=== PATIENT | female | born 1930 | race Caucasian/White ===

== ENCOUNTER 2017-09-08 17:53 | Inpatient (IN) | payer OTHER ==
[2017-09-08] MEDS ORDERED: NS 1,000 ML IV ONE (18:06)
[2017-09-08] MEDS ORDERED: HYDROmorphONE/DILAUDID 2 MG/ML INJ IVP ONE (18:06)
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
[2017-09-08 18:22] LABS: PLATELET COUNT 249 10^3/uL (150-400)
[2017-09-08 18:33] LABS: INR 0.92 (0.83-1.16); PROTIME(PATIENT) 12.6 SEC (12.0-15.0)
[2017-09-08] MEDS ORDERED: ONDANSETRON DISINTEGRATING 4 MG TAB PO PRN (19:00)
[2017-09-08] MEDS ORDERED: LR 1,000 ML IV SCH (19:00)
[2017-09-08] MEDS ORDERED: LR 1,000 ML IV ONE (19:52)
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
[2017-09-08] MEDS ORDERED: BUPIVACAINE/EPI 0.5% 30 ML SDV ONE (20:27)
--- NOTE | 2017-09-08 20:39 | PDANEPAE ---
ANE Past Medical History - Cardiovascular History Hx Hypertension: Yes Hx Arrhythmias: Yes Hx Chest Pain: No Hx Coronary Artery / Peripheral Vascular Disease: No Hx CHF / Valvular Disease: No Hx Palpitations: No - Pulmonary History Hx COPD: No Hx Asthma/Reactive Airway Disease: No Hx Recent Upper Respiratory Infection: No Hx Oxygen in Use at Home: Yes Hx Sleep Apnea: Yes Pulmonary History Comment: Uses oxygen at night - Neurologic History Hx Cerebrovascular Accident: No Hx Seizures: No Hx Dementia: Yes Neurologic History Comment: Mild cognitive impairment - Endocrine History Hx Diabetes: No - Renal History Hx Renal Disorders: No - Liver History Hx Hepatic Disorders: No - Neurological & Psychiatric Hx Hx Neurological and Psychiatric Disorders: Yes Neurological / Psychiatric History Comment: Depression - Cancer History Hx Cancer: Yes Cancer History Comment: Skin cancer - Congenital Disorder History Hx Congenital Disorders: No - GI History Hx Gastrointestinal Disorders: Yes Gastrointestinal History Comment: IBS - Chronic Pain History Chronic Pain: No - Surgical History Prior Surgeries: Hysterectomy, L. knee, breast cyst removal, retinal detachment ANE Review of Systems Review of Systems: - Exercise capacity METS (RN): 3 METS ANE Patient History - Allergies Allergies/Adverse Reactions: Penicillins Allergy (Verified 09/08/17 18:20) - Home Medications Home Medications: Aspirin EC [Aspirin EC 81 mg (*)] 81 mg PO DAILY 09/08/17 [Last Taken 09/07/17] Atenolol [Tenormin 25 mg (*)] 25 mg PO DAILY 09/08/17 [Last Taken 09/07/17] Levothyroxine [Synthroid 88 mcg (*)] 88 mcg PO DAILY06 09/08/17 [Last Taken 07/22] Losartan Potassium [Cozaar 50 mg (*)] 50 mg PO DAILY 09/08/17 [Last Taken ] Sertraline HCl [Zoloft 100mg (*)] 100 mg PO DAILY 09/08/17 [Last Taken 09/07/17] - NPO status NPO Status: no food or drink >8 hours NPO Since - Liquids (Date): 09/08/17 NPO Since - Liquids (Time): 12:00 NPO Since - Solids (Date): 09/08/17 NPO Since - Solids (Time): 12:00 - Anes Hx Anes Hx: no prior problems - Smoking Hx Smoking Status: Never smoked - Alcohol Use Alcohol Use: Sober - Family Anes Hx Family Hx Anesthesia Complications: NA ANE Labs/Vital Signs - Labs Result Diagrams: 09/08/17 17:55 09/08/17 17:55 - Vital Signs Blood Pressure: 227/124 Heart Rate: 96 Respiratory Rate: 16 O2 Sat (%): 92 Height: 157.48 cm Weight: 53.977 kg ANE Physical Exam - Airway Neck exam: FROM Mallampati Score: Class 2 Mouth exam: normal dental/mouth exam - Pulmonary Pulmonary: no respiratory distress, no rales or rhonchi, clear to auscultation - Cardiovascular Cardiovascular: regular rate and rhythym, no murmur, rub, or gallop - ASA Status ASA Status: III ANE Anesthesia Plan Anesthesia Plan: GA w LMA
--- NOTE | 2017-09-08 20:39 | POSTOPPROG ---
Post Op Note Date of Operation: 09/08/17 Surgeon: Semaj Street Anesthesia: GET(General Endotracheal) Pre-op Diagnosis: L Femoral neck fx Post-op Diagnosis: same Procedure: closed reduction, percutaneous screw fixation L femoral neck fx Inf/Abcess present in the surg proc area at time of surgery?: No
[2017-09-08] MEDS ORDERED: fentaNYL 100 MCG/2 ML INJ ONE (20:53)
[2017-09-08] MEDS ORDERED: PROPOFOL 200 MG/20 ML VIAL ONE (20:53)
[2017-09-08] MEDS ORDERED: LIDOCAINE 2% JELLY 5 ML TUBE ONE (20:53)
[2017-09-08] MEDS ORDERED: CLINDAMYCIN 600 MG/DEXTROSE 50 ML IV ONE (20:54)
[2017-09-08] MEDS ORDERED: LR 500 ML IV PRN (20:58)
[2017-09-08] MEDS ORDERED: fentaNYL 100 MCG/2 ML INJ IVP PRN (20:58)
[2017-09-08] MEDS ORDERED: PROMETHAZINE HCL 25 MG/ML INJ IVP PRN (20:58)
[2017-09-08] MEDS ORDERED: DEXAMETHASONE 4 MG/ML VIAL IVP PRN (20:58)
[2017-09-08] MEDS ORDERED: NALOXONE HCL 0.4 MG/ML INJ IVP PRN (20:58)
[2017-09-08] MEDS ORDERED: HYDROCODONE/APAP 5/325 TAB PO PRN (20:58)
[2017-09-08] MEDS ORDERED: ENALAPRILAT DIHYDRATE 1.25 MG/ML VIAL IVP PRN (20:58)
[2017-09-08] MEDS ORDERED: ONDANSETRON 4 MG/2 ML VIAL IVP PRN (20:58)
[2017-09-08] MEDS ORDERED: LABETALOL HCL 5 MG/ML 20 ML MDV ONE (21:21)
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
[2017-09-08] MEDS: LABETALOL HCL 5 MG/ML 20 ML MDV IVP PRN ×2 (22:39→23:12)
[2017-09-08] MEDS ORDERED: ENALAPRILAT DIHYDRATE 1.25 MG/ML VIAL ONE (22:52)
--- NOTE | 2017-09-08 22:57 | GOP ---
[f rep st] OPERATIVE REPORT DATE OF OPERATION: 09/08/2017 SURGEON: Semaj Street MD ANESTHESIA: General. PREOPERATIVE DIAGNOSIS: Left cervical femoral neck fracture. POSTOPERATIVE DIAGNOSIS: Left basilar femoral neck fracture. PROCEDURE PERFORMED: Open reduction and internal fixation, left basilar femoral neck fracture, with trochanteric fixation nail. FINDINGS: ESTIMATED BLOOD LOSS: Minimal. INDICATIONS: The patient is an 86-year-old community ambulator who sustained a fall, resulting in a nondisplaced left basilar femoral neck fracture. Based on the nature of her fracture and concern ove r displacement, it was recommended that operative stabilization be pursued. The patient acknowledged she understood the potential risks of the operation, including but not limited to bleeding, infectio n, neurovascular damage, limb loss, limited limb function, malunion, nonunion, pain or functional pereira itations despite operative treatment, need for hardware removal, and anesthetic risks. She acknowled ged she understood the potential risks, planned procedure and postoperative plan well, and had all he r questions answered prior to surgery. She gave consent for the operative procedure. DESCRIPTION OF PROCEDURE: The patient was brought into the operating after IV antibiotics were admin istered. She was placed in a supine position, initially on her stretcher, and after general anesthet ic was administered, she was transferred to the radiolucent fracture table with her left leg placed i n a well-padded traction boot and the right leg placed in a well-padded well-leg zavala. Fluoroscopi c views were obtained which showed that the fracture was a very basilar neck fracture rather than wha t had been initially appreciated on preoperative films being more of a basicervical type fracture. B ased on this, it was felt that a trochanteric fixation nail, rather than percutaneous screw fixation as had been originally planned and discussed with the patient, be pursued. The left hip was prepped and draped in standard sterile fashion. A small incision was made proximal to the tip of the greater trochanter. A guidepin was placed on the tip of the trochanter and advanced down the intramedullary canal of the femur. Guidepin placement was confirmed fluoroscopically in AP and lateral views, and found to be optimal. The starting reamer was then used to create a trough for nail placement. A 10 mm diameter, 170 mm long, 130-degree angle trochanteric fixation nail was passed down the intramedull lidia canal. The nail was placed in the positions so that the guidepin was at the appropriate level fo r the spiral blade placement. A guidepin, through the aiming guide, was advanced from the lateral as pect of the femur after making a small incision, into the central aspect of the femoral head on AP an d lateral images. Fluoroscopic views confirmed optimal placement. An appropriate length spiral blad e was impacted into place after pre-drilling with the step drill. The blade was then tightened into place with a proximal locking screw. A distal locking bolt was then placed using the aiming guide. Fluoroscopic views confirmed favorable implant and fracture positions. Attention was directed toward s closure. Subcutaneous tissue was closed with 3-0 Vicryl suture in interrupted fashion. The skin w as closed with skin sadiq. 0.5% Marcaine with epinephrine was injected in the wound sites. The wo unds were dressed with sterile Adaptic, 4 x 4, and tape. The patient was taken to the recovery room, extubated in stable condition postoperatively. All sponge, needle, and instrument counts were repor sandra as being correct. DRAINS: None. COMPLICATIONS: None. PLAN: The patient will be admitted for medical management. She will be weightbearing as tolerated o n her operative extremity. /[id number]/MODL
[2017-09-09] MEDS ORDERED: HYDROCODONE/APAP 5/325 TAB PO PRN (01:01)
--- NOTE | 2017-09-09 05:49 | SOAPPROG ---
SOAP Progress Note Assessment/Plan: Assessment: S/P TFN L hip Pain tolerable Liseth po L Thigh dressing intact, mild sang D/C Leg length/rotation equal Distal NVI Plan: OOB/PT May be FULL WBAT Home vs SNF pending progress 09/09/17 05:46 Objective: Vital Signs Temp Pulse Resp BP Pulse Ox 36.9 C 69 18 151/65 H 97 09/09/17 03:34 09/09/17 03:34 09/09/17 03:34 09/09/17 03:34 09/09/17 03:34 09/07/17 09/08/17 09/09/17 05:59 05:59 05:59 Intake Total 600 Output Total 590 Balance 10 PT 12.6 SEC (12.0-15.0) 09/08/17 17:55 INR 0.92 (0.83-1.16) 09/08/17 17:55 ICD10 Worksheet Patient Problems: Problems Problem Status Onset Closed left hip fracture Acute Pubic ramus fracture Acute
--- NOTE | 2017-09-09 05:51 | PDIAF ---
- Diagnosis Code Status: Full Code - Medication Management Discharge Medications: Medications to Continue on Transfer Aspirin EC [Aspirin EC 81 mg (*)] 81 mg PO DAILY 09/08/17 [Last Taken 09/07/17] Atenolol [Tenormin 25 mg (*)] 25 mg PO DAILY 09/08/17 [Last Taken 09/07/17] Levothyroxine [Synthroid 88 mcg (*)] 88 mcg PO DAILY06 09/08/17 [Last Taken 07/22] Losartan Potassium [Cozaar 50 mg (*)] 50 mg PO DAILY 09/08/17 [Last Taken ] Sertraline HCl [Zoloft 100mg (*)] 100 mg PO DAILY 09/08/17 [Last Taken 09/07/17] Discharge Medications: Refer to the Discharge Home Medication list for PRN reason. - Orders Wound Care Instructions: Keep dressing clean, dry, intact. May replace with sterile gauze if saturated Sutures/Willis Site: L thigh Date to Remove Sutures/Willis: 09/19/17 Activity/Weight Bearing Restrictions: Weight bearing as tolerated - Follow Up Care Current Providers and Referrals: Patient,NotPresent [Unknown] - As per Instructions
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
[2017-09-09] MEDS ORDERED: LIDOCAINE 1% *Not for Epidural 20 ML MDV NB ONE (08:58)
[2017-09-09] MEDS ORDERED: ATENOLOL 25 MG TAB PO SCH (09:30)
--- NOTE | 2017-09-09 11:19 | PDMN ---
Medical Necessity Medical necessity: MCG : S615 hip fx open repair 3 days: ORIF, L basilar femoral neck fx, with trochanteric fixation nail
[2017-09-09] MEDS: LEVOTHYROXINE 88 MCG TAB PO SCH (11:36)
[2017-09-09] MEDS ORDERED: BACITRACIN OINTMENT 1 PACKET TP ONE (12:31)
[2017-09-09] MEDS: ACETAMINOPHEN 325 MG TAB PO PRN (12:58)
--- NOTE | 2017-09-09 13:22 | POSTOPPROG ---
Post Op Note Date of Operation: 09/09/17 Surgeon: Augie Leija (, FACS) Anesthesiologist: none Anesthesia: Local (Specify) Pre-op Diagnosis: complex laceration left posterior upper arm Procedure: repair complex laceration left posterior upper arm Inf/Abcess present in the surg proc area at time of surgery?: No
--- NOTE | 2017-09-09 13:45 | CPEKG ---
Heart Rate: 93 RR Interval: 645 P-R Interval: 188 QRSD Interval: 84 QT Interval: 300 QTC Interval: 374 P Trent: 77 QRS Trent: 35 T Wave Trent: 225 EKG Severity - ABNORMAL ECG - EKG Impression: SINUS RHYTHM EKG Impression: VENTRICULAR BIGEMINY EKG Impression: NONSPECIFIC T ABNORMALITIES, DIFFUSE LEADS Electronically Signed By: Radha Guzman 10-Sep-2017 08:29:59
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
[2017-09-09] MEDS ORDERED: POLYETHYLENE GLYCOL 3350 17 GM PKT PO PRN (16:56)
[2017-09-09] MEDS ORDERED: BISACODYL 10 MG SUPP PR PRN (16:56)
[2017-09-09] MEDS ORDERED: LACTULOSE 20 GM/30 ML UDCUP PO PRN (16:56)
[2017-09-09] MEDS ORDERED: MAGNESIUM HYDROXIDE 30 ML UDCUP PO PRN (16:56)
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
[2017-09-09] MEDS: SENNOSIDES/DOCUSATE SODIUM TAB PO SCH (22:55)
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
[2017-09-10] MEDS ORDERED: LOSARTAN POTASSIUM 50 MG TAB PO SCH (09:00)
--- NOTE | 2017-09-10 09:08 | ECHO ---
[email or web address] [address] Main: [phone] Fax: Transthoracic Echocardiogram Name: GERARDO JOLLY MR#: [id number] Study Date: 09/10/2017 Study Time: 07:52 AM Date of : 1930 Age: 86 year(s) Height: 157.5 cm (62 in.) Weight: 53.52 kg (118 lb.) BSA: 1.53 m2 Gender: Female Examination: Echo Indication: Bigeminy, Hip Fx Image Quality: Contrast: Requested by: Jaspreet Pacheco BP: 122 mmHg/77 mmHg Heart Rate: Rhythm: Normal sinus rhythm with ectopy Indication: Bigeminy, Hip Fx Procedure Staff Bearing Machine Operator: Blake Ramon RDCS Reading Physician: Jono Chapman MD Requesting Provider: Conclusions: Normal global systolic LV function. EF is 67 %. Mild mitral valve leaflet calcification is present. Trivial mitral valve regurgitation. Minimal aortic cusp calcification is noted. Measurements: Chambers Valvular Assessment AV/MV Valvular Assessment TV/PV Normal Normal Normal Name Value Range Name Value Range Name Value Range Ao Kimberly (MM): 3.5 cm (2.2 cm-3.7 AV Vmax: 0.90 m/s (1 m/s-1.7 PV Vmax: 0.60 m/s (0.6 m/s-0.9 cm) m/s) m/s) IVSd (2D): 0.8 cm (0.6 cm-1.1 AV maxP mmHg ( - ) PV PGmax: 1 mmHg ( - ) cm) LVOT Vmax: 0.53 m/s (0.7 m/s-1.1 LVDd (2D): 4.2 cm (3.9 cm-5.3 m/s) cm) MV E Vmax: 0.75 m/s ( - ) LVDs (2D): 2.6 cm (2.1 cm-4 MV A Vmax: 1.01 m/s ( - ) cm) MV E/A: 0.74 ( - ) LVPWd (2D): 1.0 cm ( - ) LVEF (2D): 67 (>=54 %) Continued Measurements: Chambers Valvular Assessment AV/MV Name Value Name Value LADs Lon.2 cm MV E' Septal: 0.03 m/s LA Area: 17.4 cm2 MV E/E' Septal: 22.00 LA Volume: 53 ml MV E/E' Lateral: 17.50 LA Volume Index: 34.6 ml/m2 Patient: GERARDO JOLLY Study Date: 09/10/2017 Page 1 of 2 07:52 AM Findings: Left Ventricle: Normal size left ventricle. No LV hypertrophy. Normal global systolic LV function. EF is 67 %. No regional wall motion abnormality. Diastolic dysfunction is present. . Right Ventricle: Normal size right ventricle. Left Atrium: The left atrium is normal in size. Right Atrium: The right atrium is normal in size. Mitral Valve: Mild mitral valve leaflet calcification is present. Trivial mitral valve regurgitation. Aortic Valve: Minimal aortic cusp calcification is noted. The aortic valve is tri-leaflet. There is no aortic valve regurgitation. No aortic valve stenosis is present. Tricuspid Valve: The tricuspid valve is normal in appearance and function. Pulmonic Valve: The pulmonic valve is normal in appearance and function. Aorta: The aorta is normal. Pericardium: No pericardial effusion. (No Signature Object) Patient: GERARDO JOLLY Study Date: 09/10/2017 Page 2 of 2 07:52 AM [id number]
[2017-09-10] MEDS: LEVOTHYROXINE 88 MCG TAB PO SCH ×2 (09:36→09:37)
[2017-09-10] MEDS: SERTRALINE HCL 100 MG TAB PO SCH (09:37)
[2017-09-10] MEDS: SENNOSIDES/DOCUSATE SODIUM TAB PO SCH ×2 (09:38→20:37)
[2017-09-10] MEDS: ACETAMINOPHEN 325 MG TAB PO PRN (09:49)
[2017-09-10] MEDS: ENOXAPARIN 40 MG/0.4 ML SYR SC SCH (09:50)
[2017-09-10] MEDS ORDERED: PNEUMOC 13-VAL CONJ-DIP CRM/PF 0.5 ML SYR IM ONE (11:51)
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
--- NOTE | 2017-09-10 16:31 | ASMTCMCOM ---
CM Note CM Note Notes: Today PT rec SNF, OT rec inpatient rehab. Referral sent to [facility] in [employer] for approval of SNF or inpatient rehab. This afternoon this CM spoke with [place] MAYA Chapa [phone] who reports she will not complete assessment by close of business today. Spoke w pt and friends, pt agreeable to what [place] approves. SNF preference is [facility]. CM to follow. Date Signed: 09/10/2017 04:30 PM Electronically Signed By:ORION Coronel
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
[2017-09-11] MEDS: LEVOTHYROXINE 88 MCG TAB PO SCH (05:34)
[2017-09-11] MEDS: ACETAMINOPHEN 325 MG TAB PO PRN ×2 (06:50→14:09)
[2017-09-11] MEDS: ENOXAPARIN 40 MG/0.4 ML SYR SC SCH (08:55)
[2017-09-11] MEDS: LOSARTAN POTASSIUM 50 MG TAB PO SCH (08:56)
[2017-09-11] MEDS: SERTRALINE HCL 100 MG TAB PO SCH (08:57)
[2017-09-11] MEDS: SENNOSIDES/DOCUSATE SODIUM TAB PO SCH ×2 (08:57→19:53)
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
[2017-09-11] MEDS: HYDROCORTISONE 1% CREAM TP PRN (14:10)
--- NOTE | 2017-09-11 16:42 | ASMTCMCOM ---
CM Note CM Note Notes: [facility] approved SNF stay. [facility]. Sent referral via [employer] and notified [facility]. They will review and get back to us. Date Signed: 09/11/2017 04:41 PM Electronically Signed By:ORION Casper
[2017-09-12] MEDS: ACETAMINOPHEN 325 MG TAB PO PRN ×2 (04:23→20:54)
[2017-09-12] MEDS: LEVOTHYROXINE 88 MCG TAB PO SCH (05:38)
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
[2017-09-12] MEDS: LOSARTAN POTASSIUM 50 MG TAB PO SCH (09:59)
[2017-09-12] MEDS: SERTRALINE HCL 100 MG TAB PO SCH (09:59)
[2017-09-12] MEDS: SENNOSIDES/DOCUSATE SODIUM TAB PO SCH ×2 (09:59→20:53)
[2017-09-12] MEDS: ENOXAPARIN 40 MG/0.4 ML SYR SC SCH (10:00)
--- NOTE | 2017-09-12 11:03 | ASMTCMCOM ---
CM Note CM Note Notes: [facility] has approved SNF stay and [facility] has accepted. Cecelia in admissions at sent message that [facility] is good for 48 hrs which would be 09/13. If no DC on 09/13, [facility] would have to reauth. Date Signed: 09/12/2017 11:02 AM Electronically Signed By:Luna Vargas LCSW
[2017-09-12] MEDS: HYDROCORTISONE 1% CREAM TP PRN (18:40)
[2017-09-13] MEDS: ACETAMINOPHEN 325 MG TAB PO PRN (03:04)
[2017-09-13] MEDS: LEVOTHYROXINE 88 MCG TAB PO SCH (05:20)
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
[2017-09-13 08:35] VITALS: BP 152/91
[2017-09-13] MEDS: SERTRALINE HCL 100 MG TAB PO SCH (09:10)
[2017-09-13] MEDS: ENOXAPARIN 40 MG/0.4 ML SYR SC SCH (09:10)
[2017-09-13] MEDS: SENNOSIDES/DOCUSATE SODIUM TAB PO SCH (09:10)
[2017-09-13] MEDS: LOSARTAN POTASSIUM 50 MG TAB PO SCH (09:11)
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
--- NOTE | 2017-09-13 11:09 | ASMTLACE ---
LACE Length of stay for Answers: 4-6 days current admission Acuity / Level of Answers: Yes Care: Did the patient have an inpatient admission? Comorbidities - select Answers: Dementia all that apply Other Notes: HTN # of Emergency department Answers: 1-2 visits in the last 6 months Social determinants Answers: Mental health diagnosis (anxiety, depression, pers onality disorders, etc.) Score: 15 Date Signed: 09/13/2017 11:08 AM Electronically Signed By:ORION Casper
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
== END 2017-09-13 14:06 | DRG 956 ==
LOC: F3N 23:42
PROVIDERS: ADMIT Surgery; ATTEND Surgery
PROC: 0QS706Z Reposition Left Upper Femur with Intramedullary Internal Fixation Device, Open Approach (ICD-10-PCS; principal; 2017-09-08 20:45)
PROC: 0HQEXZZ Repair Left Lower Arm Skin, External Approach (ICD-10-PCS; 2017-09-09)
DX: S72.002A Fracture of unspecified part of neck of left femur, initial encounter for closed fracture (principal); S41.112A Laceration without foreign body of left upper arm, initial encounter; S00.03XA Contusion of scalp, initial encounter; S62.607A Fracture of unspecified phalanx of left little finger, initial encounter for closed fracture; S32.502A Unspecified fracture of left pubis, initial encounter for closed fracture; V18.2XXA Unspecified pedal cyclist injured in noncollision transport accident in nontraffic accident, initial encounter; Y93.55 Activity, bike riding; Y92.410 Unspecified street and highway as the place of occurrence of the external cause; R00.1 Bradycardia, unspecified; T44.7X5A Adverse effect of beta-adrenoreceptor antagonists, initial encounter; I10 Essential (primary) hypertension; Z96.652 Presence of left artificial knee joint; E78.5 Hyperlipidemia, unspecified
CPT/HCPCS: 92523-GN; 97110-GP; 97116-GP; 97161-GP; 97166-GO; 97530-GP; 97535-GO; C1713; G0009; J1650; J2704; J3010